=== PATIENT | female | born 1960 | race Caucasian/White ===

== ENCOUNTER 2023-06-01 12:29 | Inpatient (IN) | payer BC ==
[~2023-06-01] VITALS: Ht 167.6 cm; Wt 99.8 kg
[~2023-06-01 12:29] MED LIST: METF-442 PO
[2023-06-01] MEDS ORDERED: IV NORMAL SALINE 1000 ML BAG IV ONE (13:45)
[2023-06-01] MEDS ORDERED: METOCLOPRAMIDE HCL 10 MG/2 ML VIAL IV ONE (13:45)
[2023-06-01] MEDS ORDERED: KETOROLAC TROMETHAMINE 15 MG INJ IVP ONE ×2 (13:45→20:30)
[2023-06-01] MEDS ORDERED: KETOROLAC TROMETHAMINE 15 MG INJ ONE ×2 (14:04→20:24)
[2023-06-01] MEDS ORDERED: METOCLOPRAMIDE HCL 10 MG/2 ML VIAL ONE (14:04)
[2023-06-01 14:08] LABS: RED CELL DISTRIBUTION WIDTH 13.4 % (12.3-17.7)
[2023-06-01 14:13] LABS: BASOPHILS # (AUTO) 0.2 K/UL (0.0-0.2); BASOPHILS % (AUTO) 1.3 % (0.0-2.0); DIFFERENTIAL COMMENT 0; EOSINOPHILS % (AUTO) 0.2 % (0.0-7.0); HEMOGLOBIN 11.7 g/dL (10.9-14.3); LYMPHOCYTES # (AUTO) 0.3 K/uL (0.8-4.8); LYMPHOCYTES % (AUTO) 2.6 % (20.5-51.5); MEAN CORPUSCULAR HEMOGLOBIN 28.3 uug (24.7-32.8); MEAN CORPUSCULAR HGB CONC 33 g/dL (32.3-35.6); MEAN CORPUSCULAR VOLUME 84.7 fL (75.5-95.3); MONOCYTES # (AUTO) 0.5 K/uL (0.1-1.30); MONOCYTES % (AUTO) 4.1 % (0.0-11.0); NEUTROPHILS # (AUTO) 11.5 K/uL (1.8-8.9); NEUTROPHILS % (AUTO) 91.8 % (38.5-71.5); PLATELET COUNT (AUTO) 392 K/uL (179-408); RED BLOOD CELL COUNT(AUTO) 4.14 MIL/uL (3.63-4.92); WHITE BLOOD COUNT (AUTO) 12.5 K/uL (3.8-11.8)
[2023-06-01 14:16] LABS: CALCIUM 9.7 mg/dL (8.5-10.1); CARBON DIOXIDE 24 mmol/L (21-32); CHLORIDE 92 mmol/L (98-107); CREATININE 0.9 mg/dL (0.6-1.3); GLUCOSE 354 mg/dL (74-106); POTASSIUM 3.7 mmol/L (3.5-5.1); SODIUM SERUM 130 mmol/L (136-145); UREA NITROGEN, BLOOD 19 mg/dL (7-18)
[2023-06-01 14:30] LABS: ALANINE AMINOTRANSFERASE 20 U/L (14-59); ALBUMIN 2.4 g/dL (3.4-5.0); ALKALINE PHOSPHATASE 122 U/L (50-136); ASPARTATE AMINOTRANSFERASE 5 U/L (15-37); BILIRUBIN,DIRECT 0.1 mg/dL (0.0-0.2); BILIRUBIN,TOTAL 0.5 mg/dL (0.2-1.0); LIPASE 33 U/L (73-393); TOTAL PROTEIN, SERUM 7.8 g/dL (6.4-8.2)
[2023-06-01] MEDS ORDERED: SWABABLE VALVE TRANSFER SET EA MC ONE ×2 (15:36→15:37)
[2023-06-01] MEDS ORDERED: IOHEXOL 350 100 ML INFUS..BTL ONE (15:36)
[2023-06-01] MEDS ORDERED: IV NORMAL SALINE 250 ML IV ONE (15:36)
[2023-06-02] MEDS ORDERED: MAGNESIUM HYDROXIDE 30 ML LIQUID UDC PO PRN (02:30)
[2023-06-02] MEDS ORDERED: ZOLPIDEM 5 MG TABLET PO PRN (02:30)
[2023-06-02] MEDS ORDERED: REMEDY ESSENTIAL ZINC PASTE 113 GM TP PRN (02:30)
[2023-06-02] MEDS ORDERED: ACETAMINOPHEN 325 MG TABLET PO PRN (02:30)
[2023-06-02 04:12] VITALS: BP 114/67; TEMP 98.9; O2SAT 94
[2023-06-02] MEDS: ONDANSETRON 4 MG/2 ML VIAL IV PRN ×3 (05:25→15:09)
[2023-06-02] MEDS ORDERED: METF-495 PO (06:06)
[2023-06-02 07:06] LABS: BASOPHILS % (AUTO) 0.4 % (0.0-2.0); EOSINOPHILS % (AUTO) 0.2 % (0.0-7.0); HEMATOCRIT 31.3 % (31.2-41.9); HEMOGLOBIN 10.4 g/dL (10.9-14.3); LYMPHOCYTES # (AUTO) 0.6 K/uL (0.8-4.8); MEAN CORPUSCULAR HEMOGLOBIN 28.3 uug (24.7-32.8); MEAN CORPUSCULAR HGB CONC 33 g/dL (32.3-35.6); MEAN CORPUSCULAR VOLUME 85.5 fL (75.5-95.3); MONOCYTES # (AUTO) 0.7 K/uL (0.1-1.30); MONOCYTES % (AUTO) 6.7 % (0.0-11.0); NEUTROPHILS # (AUTO) 9.6 K/uL (1.8-8.9); NEUTROPHILS % (AUTO) 87.7 % (38.5-71.5); PLATELET COUNT (AUTO) 325 K/uL (179-408); RED BLOOD CELL COUNT(AUTO) 3.66 MIL/uL (3.63-4.92); RED CELL DISTRIBUTION WIDTH 13.7 % (12.3-17.7)
[2023-06-02 07:28] LABS: DIFFERENTIAL COMMENT 1
[2023-06-02 07:40] LABS: CALCIUM 8.2 mg/dL (8.5-10.1); CREATININE 0.7 mg/dL (0.6-1.3); MAGNESIUM 1.8 mg/dL (1.8-2.4)
[2023-06-02 07:57] LABS: POTASSIUM 3.6 mmol/L (3.5-5.1)
[2023-06-02 12:00] VITALS: BP 160/67; TEMP 98.5; O2SAT 95
[2023-06-02 13:10] LABS: *BLOOD, URINE 2+ (NEGATIVE); *CLARITY,URINE SLIGHTLY CLOUDY (CLEAR); *COLOR,URINE YELLOW (YELLOW); *KETONES,URINE 4+ (NEGATIVE); *UROBILINOGEN,URINE 0.2 E.U./dl (NORMAL); LEUKOCYTE ESTERASE ,URINE NEGATIVE (NEGATIVE); NITRITE, URINE NEGATIVE (NEGATIVE)
[2023-06-02 13:11] LABS: UGLUCOSE 3+ (NEGATIVE)
[2023-06-02 13:12] LABS: *BILIRUBIN,URIN 1+ (NEGATIVE)
[2023-06-02 13:14] LABS: *PROTEIN,URINE 3+ (NEGATIVE)
[2023-06-02 14:19] LABS: BACTERIA,URINE MODERATE /HPF (NONE SEEN); YEAST,URINE MANY /HPF (NONE SEEN)
[2023-06-02 14:20] LABS: SQUAMOUS EPITHELIAL CELL,UR MODERATE /HPF (NONE SEEN)
[2023-06-02 14:21] LABS: RBC,URINE 20-50 /HPF (0-3)
[2023-06-02] MEDS ORDERED: IV NS 1000 ML 1,000 ML IV ONE (14:30)
[2023-06-02] MEDS ORDERED: INSULIN REGULAR, HUMAN 300 UNITS/3 ML VIAL SQ PRN (15:00)
[2023-06-02] MEDS ORDERED: DEXTROSE 50% 50 ML DISP.SYRIN IV PRN (15:00)
[2023-06-02 15:56] LABS: CALCIUM 8.6 mg/dL (8.5-10.1); CREATININE 0.8 mg/dL (0.6-1.3); MAGNESIUM 1.8 mg/dL (1.8-2.4); PHOSPHOROUS 3.2 mg/dL (2.5-4.9); POTASSIUM 3.9 mmol/L (3.5-5.1)
[2023-06-02 16:12] VITALS: BP 170/74; TEMP 98.2; O2SAT 95
[2023-06-02 16:30] LABS: THYROID STIMULATING HORMONE 0.715 mIU/mL (0.358-3.740)
[2023-06-02 16:43] LABS: URIC ACID 4.9 mg/dL (2.6-6.0)
[2023-06-02] MEDS: METOCLOPRAMIDE HCL 10 MG/2 ML VIAL IV SCH (16:53)
[2023-06-02] MEDS: INSULIN REGULAR, HUMAN 300 UNIT/3 ML VIAL SQ PRN (17:03)
[2023-06-02] MEDS: BLOOD SUGAR DIAGNOSTIC 1 EACH STRIP VI SCH ×2 (17:05→21:12)
[2023-06-02 18:17] LABS: IRON, SERUM 9 ug/dL (50-175)
[2023-06-02 18:43] LABS: FERRITIN 550 ng/mL (8-252)
[2023-06-02 20:30] VITALS: BP 183/78; TEMP 98.9; O2SAT 94
[2023-06-02] MEDS ORDERED: INSULIN GLARGINE,HUM 300 UNITS/3 ML CARTRIDGE SQ SCH (21:00)
[2023-06-02] MEDS ORDERED: AMLODIPINE 5 MG TABLET PO ONE (22:30)
[2023-06-02] MEDS ORDERED: hydrALAZINE HCL 25 MG TABLET PO PRN (22:30)
[2023-06-03] MEDS: METOCLOPRAMIDE HCL 10 MG/2 ML VIAL IV SCH ×3 (00:17→14:00)
[2023-06-03 04:05] VITALS: BP 144/63; TEMP 98.2; O2SAT 93
[2023-06-03] MEDS: BLOOD SUGAR DIAGNOSTIC 1 EACH STRIP VI SCH ×3 (06:51→16:30)
[2023-06-03 07:59] LABS: BASOPHILS # (AUTO) 0.1 K/UL (0.0-0.2); BASOPHILS % (AUTO) 0.5 % (0.0-2.0); EOSINOPHILS % (AUTO) 0.2 % (0.0-7.0); HEMATOCRIT 29.1 % (31.2-41.9); HEMOGLOBIN 9.7 g/dL (10.9-14.3); LYMPHOCYTES # (AUTO) 0.9 K/uL (0.8-4.8); LYMPHOCYTES % (AUTO) 6.6 % (20.5-51.5); MEAN CORPUSCULAR HEMOGLOBIN 28.2 uug (24.7-32.8); MEAN CORPUSCULAR HGB CONC 34 g/dL (32.3-35.6); MEAN CORPUSCULAR VOLUME 84.1 fL (75.5-95.3); MONOCYTES % (AUTO) 7.2 % (0.0-11.0); NEUTROPHILS # (AUTO) 11.8 K/uL (1.8-8.9); NEUTROPHILS % (AUTO) 85.5 % (38.5-71.5); PLATELET COUNT (AUTO) 345 K/uL (179-408); RED BLOOD CELL COUNT(AUTO) 3.46 MIL/uL (3.63-4.92); RED CELL DISTRIBUTION WIDTH 13.3 % (12.3-17.7); WHITE BLOOD COUNT (AUTO) 13.7 K/uL (3.8-11.8)
[2023-06-03 08:00] LABS: CALCIUM 8.2 mg/dL (8.5-10.1); CREATININE 0.8 mg/dL (0.6-1.3); MAGNESIUM 1.8 mg/dL (1.8-2.4); PHOSPHOROUS 2.6 mg/dL (2.5-4.9); POTASSIUM 3.2 mmol/L (3.5-5.1)
[2023-06-03 08:06] LABS: DIFFERENTIAL COMMENT 1
[2023-06-03] MEDS: ONDANSETRON 4 MG/2 ML VIAL IV PRN (08:49)
[2023-06-03] MEDS ORDERED: AMLODIPINE 5 MG TABLET PO SCH (09:00)
[2023-06-03] MEDS ORDERED: CLOTRIMAZOLE/BETAMET DIPROP CREAM 15 GM TUBE TOP SCH (10:15)
[2023-06-03 11:14] VITALS: BP 144/60; TEMP 98.2; O2SAT 93
[2023-06-03] MEDS ORDERED: FAMOTIDINE 20 MG TABLET PO SCH (11:15)
[2023-06-03] MEDS ORDERED: POTASSIUM CHLORIDE 20 MEQ TAB.PRT.SR PO ONE (12:00)
[2023-06-03] MEDS: INSULIN REGULAR, HUMAN 300 UNIT/3 ML VIAL SQ PRN (14:47)
[2023-06-03] MEDS ORDERED: FAMO20TA8 PO (15:40)
[2023-06-03] MEDS ORDERED: ONDA4TAB5 PO (15:40)
[2023-06-03] MEDS ORDERED: TRAM50TA2 PO (15:40)
[2023-06-03] MEDS ORDERED: GLIP5TAB13 PO (15:40)
[2023-06-03] MEDS ORDERED: ALBU8.5H8 INH (15:40)
[2023-06-03] MEDS ORDERED: METO25TA6 PO (15:40)
[2023-06-03 16:28] VITALS: BP 134/66; TEMP 98.1; O2SAT 96
[2023-06-03] MEDS ORDERED: GADOTERATE MEGLUMINE 10 MMOL/20 ML VIAL IV ONE (19:10)
[2023-06-04 06:07] LABS: AFP, TUMOR MARKER 2.2 ng/mL (0.0-9.2); CANCER AG, 125 40.4 U/mL (0.0-38.1); CARBOHYDRATE ANTIGEN, 19-9 <2 U/mL (0-35); CARCINOEMBRYONIC AG (CEA) 1.1 ng/mL (0.0-4.7)
[2023-06-04 07:06] LABS: *IMMUNOGLOBULIN G, SERUM 1136 mg/dL (586-1602); IMMUNOGLOBULIN A, SERUM 394 mg/dL (87-352); IMMUNOGLOBULIN M, SERUM 78 mg/dL (26-217)
[2023-06-04 08:06] LABS: HEPATITIS B SURFACE AB, QUAL Non Reactive (.); HEPATITIS B SURFACE AG Negative (Negative); HEPATITIS C VIRUS ANTIBODY Non Reactive (Non Reactive)
[2023-06-04 11:06] LABS: A/G RATIO 0.6 (0.7-1.7); ALBUMIN 2.4 g/dL (2.9-4.4); ALPHA-1-GLOBULIN 0.5 g/dL (0.0-0.4); ALPHA-2-GLOBULIN 1.3 g/dL (0.4-1.0); BETA GLOBULIN 1.2 g/dL (0.7-1.3); GAMMA GLOBULIN 1.1 g/dL (0.4-1.8); GLOBULIN, TOTAL 4.1 g/dL (2.2-3.9); M-SPIKE Not Observed g/dL (Not Observed)
[2023-06-04 13:06] LABS: FREE KAPPA LT CHAINS SERUM 33.5 mg/L (3.3-19.4); FREE LAMBDA LT CHAIN SERUM 29.2 mg/L (5.7-26.3); KAPPA/LAMBDA RATIO SERUM 1.15 (0.26-1.65)
== END 2023-06-03 19:11 | disposition home or self-care (01) | DRG 383 ==
LOC: ER 12:31 → MEDSURG3 20:47
PROVIDERS: ADMIT Student in an Organized Health Care Education/Training Program; ATTEND Internal Medicine
DX: K27.9 Peptic ulcer, site unspecified, unspecified as acute or chronic, without hemorrhage or perforation (principal); E43 Unspecified severe protein-calorie malnutrition; E87.1 Hypo-osmolality and hyponatremia; C78.7 Secondary malignant neoplasm of liver and intrahepatic bile duct; R10.11 Right upper quadrant pain; E11.65 Type 2 diabetes mellitus with hyperglycemia; D17.71 Benign lipomatous neoplasm of kidney; D64.9 Anemia, unspecified; D72.829 Elevated white blood cell count, unspecified; E04.1 Nontoxic single thyroid nodule; E66.9 Obesity, unspecified; E88.09 Other disorders of plasma-protein metabolism, not elsewhere classified; I10 Essential (primary) hypertension; Z87.891 Personal history of nicotine dependence; J45.909 Unspecified asthma, uncomplicated; D25.9 Leiomyoma of uterus, unspecified; E27.8 Other specified disorders of adrenal gland; E04.2 Nontoxic multinodular goiter; E78.5 Hyperlipidemia, unspecified; G89.29 Other chronic pain; Z91.199 Patient's noncompliance with other medical treatment and regimen due to unspecified reason; K29.70 Gastritis, unspecified, without bleeding; R19.5 Other fecal abnormalities; J44.9 Chronic obstructive pulmonary disease, unspecified; Z68.35 Body mass index [BMI] 35.0-35.9, adult; Z88.6 Allergy status to analgesic agent
CPT/HCPCS: 36415; 82105; 82378; 82533; 82747; 82784; 83550; 83605; 83690; 83735; 84100; 84155; 84165; 84443; 84484; 84550; 85014; 85025; 85730; 86301; 86334; 86706; 86803; 87040; 87077; 87340; 93005; A4606; A9575; G0378; J1815; J1885; J2405; J2765; J7040; Q9967